=== PATIENT | female | born 1960 | race African-American/Black ===

== ENCOUNTER 2016-10-14 15:28 | Outpatient (CLI) | payer OTHER ==
--- NOTE | 2016-10-14 16:51 | RAD ---
LEFT KNEE FOUR VIEWS: 10/14/16 HISTORY: Pain and swelling in the left knee. FINDINGS: Degenerative changes are present manifested by osteophyte formation and joint space narrowing. No fr acture, dislocation, or bony destruction is seen. IMPRESSION: Left knee osteoarthritis. POS: OFF
== END 2016-10-14 15:29 | disposition home or self-care (01) ==
LOC: MADRAD 15:28
PROVIDERS: ATTEND General Practice
DX: M25.462 Effusion, left knee (principal); M25.562 Pain in left knee; M17.12 Unilateral primary osteoarthritis, left knee

== ENCOUNTER 2021-10-13 12:33 | Emergency (ER) | payer BC, OTHER ==
[~2021-10-13 12:33] MED LIST: Sodium Chloride 0.9% 1,000 ML BAG ONE
[2021-10-13] MEDS ORDERED: Insulin Regular 300 UNITS/3 ML VIAL ONE (13:16)
[2021-10-13] MEDS ORDERED: Sodium Chloride 0.9% 2,000 ML ONE (13:16)
[2021-10-13 13:32] LABS: ALT (SGPT) 21 U/L (8-55); AST (SGOT) 16 U/L (5-34); Albumin 3.9 g/dL (3.4-4.8); Alkaline Phosphatase 85 U/L (40-110); Anion Gap 24 mmol/L (10-20); BUN (Urea Nitrogen) 17 mg/dL (9.8-20.1); Base Excess-Venous -6.4 mmol/L (-2.0 to 3.0); Bicarbonate (HCO3v) 18.4 mmol/L (22.0-28.0); Bilirubin, Total 0.6 mg/dL (0.2-1.2); CK (CPK) 88 U/L (29-168); CO2 Tension (PvCO2) 34.2 mmHg (42.0-51.0); Calc. Creatinine Clearance 0 mL/min (70-130); Calcium 9.1 mg/dL (7.8-10.44); Calcium, Ionized 1.14 mmol/L (1.15-1.33); Carbon Dioxide 14 mmol/L (23-31); Chloride 101 mmol/L (98-107); Chloride 107 mmol/L (98-107); Globulin 3.7 g/dL (2.4-3.5); Glucose 457 mg/dL (80-115); Hemoglobin - Calc 16.6 g/dL (12.0-16.0); Potassium 4.5 mmol/L (3.5-5.1); Protein, Total 7.6 g/dL (5.8-8.1); Sodium 134 mmol/L (136-145); Sodium 135 mmol/L (138-145); T. Carbon Dioxide 19.5 mmol/L (22.0-28.0); vO2 Saturation-calc 99.6 % (60.0-85.0)
[2021-10-13 13:33] LABS: #Basophils 0.1 thou/uL (0.0-0.2); #Eosinphils 0.1 thou/uL (0.0-0.7); #Lymphocytes 2.1 thou/uL (1.20-3.40); #Monocytes 0.2 thou/uL (0.11-0.59); #Neutrophils 4.1 thou/uL (1.40-6.50); %Basophils 1.1 % (0.0-1.0); %Eosinophils 1.2 % (0.0-10.0); %Lymphocytes 32.1 % (21.0-51.0); %Monocytes 3.6 % (0.0-10.0); Hemoglobin 13.2 g/dL (12.0-16.0); Mean Corpuscular HGB CONC 29.8 g/dL (32.0-36.0); Mean Corpuscular Hemoglobin 19.8 pg (27.0-31.0); Mean Corpuscular Volume 66.5 fL (78.0-98.0); Mean Platelet Volume 17.1 fL (7.4-10.4); Platelet Count 191 thou/uL (130-400); RBC Distribution Width 12.7 % (11.5-14.5); Red Blood Cell (RBC) Count 6.68 mill/uL (4.20-5.40); White Blood Cell (WBC) Count 6.6 thou/uL (4.8-10.8)
[2021-10-13 13:34] LABS: Giant Platelets SLIGHT; Large Platelets MODERATE; Microcytosis SLIGHT = 6-15 cells (100X) (0-5/hpf)
[2021-10-13 13:35] LABS: Platelet Morphology Comment Appears Adequate
[2021-10-13 13:41] LABS: Bilirubin Small (Negative); Blood, Urine Negative (Negative); Clarity Clear (Clear); Glucose, Urine (Dipstick) 500 mg/dL (Negative); Ketone, Urine > or equal to 80 mg/dL (Negative); Leukocyte Negative (Negative); Nitrite Negative (Negative); Protein, Urine (Dipstick) Trace mg/dL (Neg-Trace); Urobilinogen 0.2 mg/dL (Less than 2)
[2021-10-13 13:44] LABS: Specific Gravity, Urine 1.041 (1.002-1.036)
== END 2021-10-13 14:59 | disposition short-term general hospital (02) ==
LOC: MADERS 12:33
DX: E11.65 Type 2 diabetes mellitus with hyperglycemia (principal); E78.5 Hyperlipidemia, unspecified; I10 Essential (primary) hypertension; E78.00 Pure hypercholesterolemia, unspecified; Z79.899 Other long term (current) drug therapy
CPT/HCPCS: 36416; 80053; 81003; 82010; 82330; 82550; 82803; 83605; 85025; 94760; 96361; 96365; 96376; J1815; J7050